=== PATIENT | female | born 1945 | race Caucasian/White ===

== ENCOUNTER → 2021-05-13 | Day surgery (SDC) | payer MEDICARE, BC | LOC: MSO 07:21 | DX: Z12.11 Encounter for screening for malignant neoplasm of colon (principal); K57.30 Diverticulosis of large intestine without perforation or abscess without bleeding; K21.9 Gastro-esophageal reflux disease without esophagitis; Z79.82 Long term (current) use of aspirin; Z79.899 Other long term (current) drug therapy; Z86.010 Personal history of colon polyps; Z80.0 Family history of malignant neoplasm of digestive organs | CPT/HCPCS: 00812; J2704; J7120 ==

== ENCOUNTER → 2022-10-20 | Outpatient (CLI) | payer MEDICARE, BC | LOC: RAD 12:34 | DX: N20.0 Calculus of kidney (principal); Q44.5 Other congenital malformations of bile ducts; Z90.49 Acquired absence of other specified parts of digestive tract | CPT/HCPCS: Q9967 ==